=== PATIENT | female | born 2000 | race Caucasian/White ===

== ENCOUNTER → 2019-07-23 10:44 | Outpatient (CLI) | payer OTHER, SELFPAY ==
[2019-07-23 12:08] LABS: TSH w/ Reflex to FT4 5.11 uIU/mL (0.47-4.68)
[2019-07-23 12:36] LABS: Free T4, Direct Thyroxine 0.98 ng/dL (0.78-2.19)
== END ==
PROVIDERS: PCP Family Medicine; Visit Provider Family Medicine
DX: E03.9 Hypothyroidism, unspecified (principal)
CPT/HCPCS: 36415; 84439; 84443